=== PATIENT | female | born 1980 | race Caucasian/White ===

== ENCOUNTER 2016-11-11 13:32 | Emergency (ER) | payer OTHER ==
[~2016-11-11] VITALS: Ht 154.9 cm; Wt 77.1 kg
[~2016-11-11 13:32] MED LIST: ACETAMINOPHEN/B1 TA1 PO; AMOXIL500 MG PO; AUGMENTIN 875875 MG PO; BACTRIM DS 8001 TA1 PO; DAYPRO600 M1 PO; FLEXERIL10 MG PO; GOOD NEIGHBOR L10 MG PO; HYDROCODONE BIT1 T11 PO; IBU-8800 MG PO; KEFLEX500 MG PO; MOTRIN600 MG PO; MOTRIN800 MG PO; NAPROSYN500 MG PO; NORCO 325 MG-51 TAB PO; OXAPROZIN600 M1 PO; PREDNISONE10 MG PO; ROBAXIN750 MG PO; SUDAFED60 MG PO; TOBREX OPHTH S2.5 ML OPH; TRAMADOL HCL50 MG PO; ULTRAM50 MG PO; VICODIN 5/500 505 MG PO; VICODIN1 TAB PO; VITAMIN D50000 IU PO; ZYRTEC10 MG PO; [UNRECOGNIZED DRUG - REMARK]
[2016-11-11 13:38] VITALS: BP 161/83
[2016-11-11] MEDS ORDERED: NAPROSYN500 MG PO (14:11)
== END 2016-11-11 16:29 | disposition home or self-care (01) ==
LOC: ED 13:32
DX: S90.01XA Contusion of right ankle, initial encounter (principal); S90.31XA Contusion of right foot, initial encounter; R03.0 Elevated blood-pressure reading, without diagnosis of hypertension; F17.200 Nicotine dependence, unspecified, uncomplicated; W20.8XXA Other cause of strike by thrown, projected or falling object, initial encounter; Y93.9 Activity, unspecified; Y92.9 Unspecified place or not applicable; Y99.9 Unspecified external cause status

== ENCOUNTER 2017-03-28 16:06 | Emergency (ER) | payer OTHER ==
[~2017-03-28] VITALS: Ht 160 cm; Wt 72.6 kg
[2017-03-28 16:15] VITALS: BP 137/109
[2017-03-28] MEDS ORDERED: CEPHALEXIN500 M1 PO (17:15)
[2017-03-28] MEDS ORDERED: Motrin,Rufen800 MG PO (17:37)
== END 2017-03-28 16:34 | disposition home or self-care (01) ==
LOC: ED 16:06
DX: S80.11XA Contusion of right lower leg, initial encounter (principal); F17.200 Nicotine dependence, unspecified, uncomplicated; W22.8XXA Striking against or struck by other objects, initial encounter; Y93.89 Activity, other specified; Y92.89 Other specified places as the place of occurrence of the external cause; Y99.8 Other external cause status

== ENCOUNTER 2018-03-29 14:05 | Emergency (ER) | payer OTHER ==
[~2018-03-29] VITALS: Ht 162.5 cm; Wt 77.1 kg
[~2018-03-29 14:05] MED LIST changes: +CEPHALEXIN500 M1 PO; +Motrin,Rufen800 MG PO
[2018-03-29 14:06] VITALS: BP 125/84
[2018-03-29] MEDS ORDERED: WOMEN'S DAILY1 EAC3 PO (14:21)
== END 2018-03-29 15:51 | disposition home or self-care (01) ==
LOC: ED 14:05
DX: S60.052A Contusion of left little finger without damage to nail, initial encounter (principal); Z79.899 Other long term (current) drug therapy; W23.0XXA Caught, crushed, jammed, or pinched between moving objects, initial encounter; Y93.89 Activity, other specified; Y92.810 Car as the place of occurrence of the external cause; Y99.8 Other external cause status

== ENCOUNTER 2018-07-15 13:05 | Emergency (ER) | payer OTHER ==
[~2018-07-15] VITALS: Ht 162.5 cm; Wt 77.1 kg
--- NOTE | ~2018-07-15 | EKG ---
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
[~2018-07-15 13:05] MED LIST changes: +WOMEN'S DAILY1 EAC3 PO
[2018-07-15 13:22] LABS: BASO # 0.1 10*3/uL (0.0-0.1); BASO % 0.7 % (0.0-1.0); EOS # 0.2 10*3/uL (0.0-0.4); EOS % 2.3 % (1.0-4.0); HEMATOCRIT 41.4 % (37.0-47.0); LYMPH # 2.8 10*3/uL (1.3-4.4); LYMPH % 32.2 % (27.0-41.0); MEAN CELL VOLUME 93.5 fl (81.0-99.0); MEAN CORPUSCULAR HGB 31.6 pg (27.0-31.0); MEAN CORPUSCULAR HGB CONC 33.8 g/dl (33.0-37.0); MEAN PLATELET VOLUME 8.8 fl (9.6-12.3); MONO # 1.1 10*3/uL (0.1-1.0); MONO % 12.1 % (3.0-9.0); NEUT # 4.6 10*3/uL (2.3-7.9); NEUT % 52.5 % (47.0-73.0); PLATELET COUNT AUTOMATED 296 10*3/uL (130-400); RED BLOOD COUNT 4.43 10*6/uL (4.10-5.10); RED CELL DISTRI WIDTH 12.8 % (0-14.5); WHITE BLOOD COUNT 8.8 10*3/uL (4.8-10.8)
[2018-07-15 13:31] LABS: ACT PARTIAL THROMBO TIME 25.6 SECONDS (20.8-31.5)
[2018-07-15 13:40] LABS: ALBUMIN 4.1 gm/dl (3.1-4.5); ALKALINE PHOSPHATASE 46 U/L (45-117); BUN 11 mg/dl (7-24); CHLORIDE 110 mmol/L (98-107); CREATININE 0.87 mg/dL (0.55-1.02); POTASSIUM 3.9 mmol/L (3.5-5.1); SGOT/AST 14 IU/L (3-35); SGPT/ALT 35 U/L (12-78); SODIUM 142 mmol/L (136-145); TOTAL PROTEIN 7.6 gm/dL (6.4-8.2)
[2018-07-15 13:41] LABS: TROPONIN I < 0.015 ng/ml (<0.045)
[2018-07-15 15:03] VITALS: BP 118/72
== END 2018-07-15 15:15 | disposition left against medical advice (07) ==
LOC: ED 13:05
PROVIDERS: Emergency Medicine
DX: R07.89 Other chest pain (principal); R06.02 Shortness of breath; R42 Dizziness and giddiness; Z79.899 Other long term (current) drug therapy

== ENCOUNTER 2019-05-29 15:00 | Emergency (ER) | payer OTHER ==
[~2019-05-29] VITALS: Ht 162.5 cm; Wt 72.6 kg
[~2019-05-29 15:00] MED LIST changes: +MEDROL DOSEPAK4 MG PO
[2019-05-29 15:02] VITALS: BP 116/70
[2019-05-29] MEDS ORDERED: DOXYCYCLINE100 M3 PO (15:28)
[2019-05-29] MEDS ORDERED: IBUPROFEN600 MG PO (15:28)
== END 2019-05-29 15:50 | disposition home or self-care (01) ==
LOC: ED 15:00
DX: L02.511 Cutaneous abscess of right hand (principal); Z79.899 Other long term (current) drug therapy

== ENCOUNTER 2020-01-09 11:39 | Emergency (ER) | payer OTHER ==
[~2020-01-09] VITALS: Ht 160 cm; Wt 68.0 kg
[~2020-01-09 11:39] MED LIST changes: +DOXYCYCLINE100 M3 PO; +IBUPROFEN600 MG PO
[2020-01-09 11:49] VITALS: BP 127/76
[2020-01-09] MEDS ORDERED: IBU800 MG PO (13:19)
[2020-01-09] MEDS ORDERED: NORCO 5-325 TA1 EACH PO (13:19)
== END 2020-01-09 13:24 | disposition home or self-care (01) ==
LOC: ED 11:39
DX: S52.501A Unspecified fracture of the lower end of right radius, initial encounter for closed fracture (principal); Z79.899 Other long term (current) drug therapy; W01.0XXA Fall on same level from slipping, tripping and stumbling without subsequent striking against object, initial encounter; Y93.89 Activity, other specified; Y92.89 Other specified places as the place of occurrence of the external cause; Y99.8 Other external cause status

== ENCOUNTER 2021-02-11 17:06 | Emergency (ER) | payer OTHER ==
[~2021-02-11] VITALS: Ht 162.5 cm; Wt 68.0 kg
[~2021-02-11 17:06] MED LIST changes: +IBU800 MG PO; +NORCO 5-325 TA1 EACH PO
[2021-02-11 17:34] VITALS: BP 134/81
[2021-02-11] MEDS ORDERED: IBUPROFEN600 MG PO (21:45)
[2021-02-11] MEDS ORDERED: ROBAXIN-750750 MG PO (21:45)
== END 2021-02-11 22:00 | disposition home or self-care (01) ==
LOC: ED 17:06
DX: S63.591A Other specified sprain of right wrist, initial encounter (principal); S13.4XXA Sprain of ligaments of cervical spine, initial encounter; S20.211A Contusion of right front wall of thorax, initial encounter; F17.200 Nicotine dependence, unspecified, uncomplicated; Z79.899 Other long term (current) drug therapy; V49.88XA Car occupant (driver) (passenger) injured in other specified transport accidents, initial encounter; Y93.89 Activity, other specified; Y92.413 State road as the place of occurrence of the external cause; Y99.9 Unspecified external cause status

== ENCOUNTER 2021-04-16 18:45 | Emergency (ER) | payer OTHER ==
[~2021-04-16] VITALS: Ht 162.5 cm; Wt 70.3 kg
[~2021-04-16 18:45] MED LIST changes: +ROBAXIN-750750 MG PO
[2021-04-16 18:49] VITALS: BP 127/74
== END 2021-04-16 21:49 | disposition home or self-care (01) ==
LOC: ED 18:45
DX: S66.812A Strain of other specified muscles, fascia and tendons at wrist and hand level, left hand, initial encounter (principal); F17.200 Nicotine dependence, unspecified, uncomplicated; Z79.899 Other long term (current) drug therapy; X50.1XXA Overexertion from prolonged static or awkward postures, initial encounter; Y93.89 Activity, other specified; Y92.89 Other specified places as the place of occurrence of the external cause; Y99.9 Unspecified external cause status

== ENCOUNTER 2021-05-22 00:36 | Emergency (ER) | payer OTHER ==
[2021-05-22 00:40] VITALS: BP 126/100
== END 2021-05-22 05:22 | disposition home or self-care (01) ==
LOC: ED 00:36
DX: S09.90XA Unspecified injury of head, initial encounter (principal); M54.2 Cervicalgia; M62.838 Other muscle spasm; F17.200 Nicotine dependence, unspecified, uncomplicated; Z79.2 Long term (current) use of antibiotics; Z79.899 Other long term (current) drug therapy; Y04.2XXA Assault by strike against or bumped into by another person, initial encounter; Y93.89 Activity, other specified; Y92.481 Parking lot as the place of occurrence of the external cause; Y99.8 Other external cause status

== ENCOUNTER 2021-05-30 18:58 | Emergency (ER) | payer OTHER | END 2021-05-30 19:49 | disposition left against medical advice (07) | LOC: ED 18:58 | DX: R21 Rash and other nonspecific skin eruption (principal); Z53.21 Procedure and treatment not carried out due to patient leaving prior to being seen by health care provider ==

== ENCOUNTER 2021-05-31 19:38 | Emergency (ER) | payer OTHER | END 2021-05-31 20:45 | disposition left against medical advice (07) | LOC: ED 19:38 | DX: M79.89 Other specified soft tissue disorders (principal); Z53.21 Procedure and treatment not carried out due to patient leaving prior to being seen by health care provider ==